=== PATIENT | female | born 1980 | race Caucasian/White ===

== ENCOUNTER → 2016-12-29 | Outpatient (CLI) | payer MEDICARE, BC ==
--- NOTE | 2016-12-29 14:53 | RAD ---
Transabdominal pelvic ultrasound . History: Tight hymenal ring, unable to do a well woman checkup. Heavy menstrual periods. Comparison: None. Technique: Transabdominal imaging of the pelvis was performed. Findings: The uterus measures 8.9 cm in length. Uterus has an unremarkable appearance. The endometrial stripe measures 13 mm, within normal limits. Right ovary measures 2.3 x 1.9 x 2.2 cm and demonstrates dominant follicle. Left ovary measures 1.7 x 1.5 x 2.0 cm and is unremarkable. No adnexal masses are seen. Both ovaries demonstrate normal vascular flow upon Doppler interrogation and are without evidence of torsion. Impression: Unremarkable pelvic ultrasound.
== END | disposition home or self-care (01) ==
LOC: US 08:43
PROVIDERS: ATTEND Specialist
DX: N89.6 Tight hymenal ring (principal); N92.0 Excessive and frequent menstruation with regular cycle
CPT/HCPCS: 76856

== ENCOUNTER → 2018-02-01 | Outpatient (CLI) | payer MEDICARE, BC ==
--- NOTE | 2018-02-01 15:46 | RAD ---
CT study of the maxillofacial bones without contrast Clinical indications: Left ear otalgia. Congestion. [employer] protocol. TECHNIQUE: Noncontrast helical CT scanning of the maxillofacial bones focusing on the paranasal sinuses was performed using the [employer] protocol. The mandible was not completely included. Multiplanar 2-D reconstructions were generated. PQRS compliance Statement One or more of the following individualized dose reduction techniques were utilized for this study: 1. Automated exposure control 2. Adjustment of the mA and/or kV according to patient size 3. Use of iterative reconstruction technique COMPARISON: None available. FINDINGS: The maxillary and sphenoid and frontal sinuses are clear. There is opacification of 2 posterior ethmoid air cells on the right side. The rest of the right ethmoid sinus is clear. The left ethmoid sinus is clear. No air-fluid levels are evident. The infundibular canal of the ostiomeatal complex of both maxillary sinuses is patent. There is nasal septal deviation with the convexity pointed towards the left side. There is mild mucosal thickening of the middle and inferior turbinates on the left side. No soft tissue mass or polyp is evident within the nasal passageway. The adenoids are not abnormally thickened. No osteolytic process is seen. The middle ear cavities and mastoid sinuses are clear on both sides. The orbits are symmetric. IMPRESSION: Opacification of 2 posterior ethmoid air cells on the right side. No sinusitis is seen elsewhere. Electronically signed by: Dustin Davis MD (02/01/2018 3:44 PM) [id number]
== END | disposition home or self-care (01) ==
LOC: CT 11:11
PROVIDERS: ATTEND Otolaryngology
DX: H92.02 Otalgia, left ear (principal)
CPT/HCPCS: 70486

== ENCOUNTER → 2018-06-22 | Outpatient (CLI) | payer MEDICARE, BC ==
--- NOTE | 2018-06-22 09:56 | RAD ---
CT HEAD INDICATION: DISORIENTATION AND CONFUSION TIMES 3 WEEKS COMPARISON: None Available. TECHNIQUE: 5 mm contiguous axial images were obtained from the skull base to the vertex . Exposure: One or more of the following individualized dose reduction techniques were utilized for this examination: 1. Automated exposure control 2. Adjustment of the mA and/or kV according to patient size 3. Use of iterative reconstruction technique. FINDINGS: No abnormal attenuation within the brain parenchyma. No evidence of acute intracranial hemorrhage. No extra-axial fluid collections. No mass effect or midline shift. Ventricular size is appropriate. Basal cisterns are patent. No fractures identified.Kohli-white differentiation is preserved.Globes and orbits are within normal limits. Paranasal sinuses and mastoid air cells are clear. IMPRESSION: No acute intracranial findings. Electronically signed by: Nilton Limon MD (06/22/2018 9:53 AM) [id number]
== END | disposition home or self-care (01) ==
LOC: CT 09:16
PROVIDERS: ATTEND Specialist
DX: R41.0 Disorientation, unspecified (principal)
CPT/HCPCS: 70450

== ENCOUNTER → 2019-06-27 | Outpatient (CLI) | payer MEDICARE, BC ==
--- NOTE | 2019-06-27 15:54 | RAD ---
Examination: CT of the abdomen pelvis without contrast HISTORY: History of gross hematuria COMPARISON: None available TECHNIQUE: Axial CT images of the abdomen pelvis were performed without contrast. Coronal and sagittal reformats are performed Exposure: One or more of the following individualized dose reduction techniques were utilized for this examination: 1. Automated exposure control 2. Adjustment of the mA and/or kV according to patient size 3. Use of iterative reconstruction technique. FINDINGS: The bibasilar lungs grossly appears unremarkable. No evidence of free air identified in the abdomen. The evaluation of the solid organs is limited due to lack of IV contrast. The evaluation of bowel is limited due to lack of oral contrast. The visualized noncontrasted liver, spleen, adrenals grossly appears unremarkable. The gallbladder is mildly distended. The stomach is mildly distended. The pancreas grossly appears unremarkable. The small bowel is nondilated. The appendix is normal. Feces and gas noted in the colon. Mild thickened appearance of the wall of the descending colon and sigmoid colon with minimal surrounding fat stranding likely colitis. No evidence of intrarenal collecting system calculi or hydronephrosis. Urinary bladder is mildly distended. Small fat-containing umbilical hernia. No evidence of lytic bony destructive lesion. Enlarged appearing uterus. IMPRESSION: 1. Mild thickened appearance of the wall of the descending colon and sigmoid colon with minimal surrounding fat shutting likely colitis. 2. No evidence of intrarenal collecting system calculi or hydronephrosis. Electronically signed by: Nilton Limon MD (06/27/2019 3:51 PM) [id number]
== END | disposition home or self-care (01) ==
LOC: CT 15:13
PROVIDERS: ATTEND Specialist
DX: R31.0 Gross hematuria (principal); M25.552 Pain in left hip
CPT/HCPCS: 74176